=== PATIENT | female | born 1985 | race Caucasian/White ===

== ENCOUNTER 2017-02-01 20:58 | Emergency (ER) | payer SELFPAY ==
[2017-02-01 21:15] VITALS: BP 123/80
--- NOTE | 2017-02-01 21:22 | ED Physician Documentation ---
Upper Extremity Injury - HPI Stated Complaint: Pain in right wrist/thumb Chief Complaint: Upper Extremity Injury Additional Information: 31 yo F who present with right thumb and wrist pain that started after someone she was trying to help hyperextend her thumb and wrist breaking a fall. There is pain with movement. Pt has not done anything to help the pain since it occurred around 1730. Onset: today Severity: moderate Duration: worse Context: other (trauma) Modifying Factors: pain on movement Further Comments: no - ROS CONST: no problems CVS/RESP: none NEURO: none MS/SKIN/LYMPH: none - PAST HX Past History: none Allergies/Adverse Reactions: Allergies Allergy/AdvReac Type Severity Reaction Status Date / Time diphenhydramine HCl AdvReac Hallucinati Verified 02/01/17 21:17 [From Richard] ons Home Medications: Ambulatory Orders Medication Instructions Recorded NK [NK] 03/28/15 - SOCIAL HX Smoking History: non-smoker - FAMILY HX Family History: none - VITAL SIGNS Vital Signs: Vital Signs Temp Pulse Resp BP Pulse Ox 97 H 18 123/80 95 02/01/17 21:00 02/01/17 21:00 02/01/17 21:00 02/01/17 21:00 - REVIEWED ASSESSMENTS Nursing Assessment Reviewed: Yes Vitals Reviewed: Yes Progress - Progress Progress: here with right wrist and thumb pain -- noted with tenderness to palpation and mild swelling with limited ROM-- will get X-ray -- noted with no fracture or dislocation -- given Toradol 60mg IM x 1-- and d/c home with sprain and close follow up-- ED Results Lab/Radiology - Orders Orders: ED Orders Category Date Time Status FOREARM XR [FOREARM 2 VIEWS] [RAD] Stat Exams 02/01/17 Completed HAND XRAY [HAND 3 VIEWS OR MORE] [RAD] Stat Exams 02/01/17 Completed Ketorolac Tromethamine [Toradol] Med 02/01/17 22:19 Once 60 mg IM NOW ONE Upper Extremity Injury Physic - Physical Exam General Appearance: no acute distress Hand: bone tenderness, limited ROM (right thumb and wrist), soft tissue tenderness, swelling Wrist: bone tenderness, limited ROM (right wrist), pain Elbow/Forearm: normal inspection, non-tender, no evidence of injury Shoulder: normal inspection, non-tender, no evidence of injury, normal ROM Neuro/Vascular/Tendon: no vascular compromise Skin: warm,dry Head/ENT: nml inspection Neck/Back: nml inspection Resp/CVS: chest non-tender Abdomen: non-tender Discharge Clincal Impression: Sprain of wrist, right Qualifiers: Encounter type: initial encounter Qualified Code(s): S63.501A - Unspecified sprain of right wrist, initial encounter Referrals: Ivana Vallecillo MD [Primary Care Provider] - 2 Days Home Medications: Ambulatory Orders NK [NK] 03/28/15 Condition: Good Disposition: 01 HOME, SELF-CARE Decision to Admit: NO Decision Time: 22:22
--- NOTE | 2017-02-01 22:05 | Diagnostic Imaging Report ---
NEV[place]LE CHOPRA [facility] [id number] [facility] [address] [place] [phone]. [phone] Report Submission Date: February 01, 2017 10:03:43 PM CDT Patient Study Name: CHE RAM Date: February 01, 2017 9:47:26 PM CDT Modality Type: CR Gender: F Description: UPPER EXTREMITY : 83 Institution: [facility] Physician: NEVILLE CHOPRA Right forearm 2 views Date of Exam: February 01, 2017. History: RT FOREARM- PAIN IN ANTERIOR TO LATERAL THUMB AREA RADIATING UP FOREARM. (Hx) / INJURY (DICOM Hx) / INJURY (Pt comments) Findings: There is no evidence of acute fracture, dislocation or soft tissue abnormality. The radiocarpal alignment is maintained. Impression: No acute osseous abnormality. Electronically signed on February 01, 2017 10:03:43 PM CDT by: Tina PADRON
--- NOTE | 2017-02-01 22:06 | Diagnostic Imaging Report ---
NEVILLE CHOPRA [facility] [address] [facility] [address] [place] [phone]. [phone] Report Submission Date: February 01, 2017 10:05:45 PM CDT Patient Study Name: CHE RAM Date: February 01, 2017 9:50:08 PM CDT Modality Type: CR Gender: F Description: UPPER EXTREMITY : 83 Institution: [facility] Physician: NEVILLE CHOPRA Right hand 3 views Date of Exam: February 01, 2017. History: RT HAND- PAIN IN ANTERIOR TO LATERAL THUMB AREA RADIATING UP FOREARM. (Hx) / THUMB INJURY (DICOM Hx) / THUMB INJURY (Pt comments) Findings: No acute fracture or dislocation is identified. The radiocarpal alignment is maintained. The soft tissues are unremarkable. Impression: No acute osseous abnormality. Electronically signed on February 01, 2017 10:05:45 PM CDT by: Tina PADRON
[2017-02-01] MEDS ORDERED: KETOROLAC TROMETHAMINE 60 MG/2 ML VIAL IM ONE (22:19)
== END 2017-02-01 22:30 | disposition home or self-care (01) ==
LOC: ED 20:58
DX: S63.501A Unspecified sprain of right wrist, initial encounter (principal); W19.XXXA Unspecified fall, initial encounter; Y93.9 Activity, unspecified; Y99.9 Unspecified external cause status
CPT/HCPCS: 73090; 73130; J1885; 96372; 99283